=== PATIENT | female | born 1945 | race Caucasian/White ===

== ENCOUNTER → 2017-01-26 16:31 | Outpatient (CLI) | payer MEDICARE, BC, OTHER ==
[2016-01-22 14:38] VITALS: BMI 20.1
[~2017-01-26 16:31] MED LIST: ADVIL200 MG PO; ALLERGY SHOT; ANORO ELLIPTA1 EACH INH; CHANTIX 1 MG TAB1 MG PO; CHOLESTROL MED; GLUCOPHAGE500 MG PO; VYTORIN 10-40 M1 TAB PO
== END | disposition home or self-care (01) ==
LOC: D.MAMMO 15:30
DX: Z12.31 Encounter for screening mammogram for malignant neoplasm of breast (principal)

== ENCOUNTER 2017-02-01 09:45 | Outpatient (CLI) | payer MEDICARE, BC, OTHER ==
[2017-02-01 10:57] VITALS: BP 132/82; Ht 157.5 cm
== END 2017-02-01 10:50 ==
LOC: D.OPS 09:45
DX: M81.0 Age-related osteoporosis without current pathological fracture (principal)

== ENCOUNTER 2017-08-09 10:50 | Outpatient (CLI) | payer MEDICARE, BC, OTHER ==
[2017-08-09 11:15] VITALS: BP 142/77; BMI 18.3
== END 2017-08-09 11:25 | disposition home or self-care (01) ==
LOC: D.OPS 10:50
DX: M81.0 Age-related osteoporosis without current pathological fracture (principal)

== ENCOUNTER 2017-12-14 14:46 | Emergency (ER) | payer MEDICARE, BC, OTHER | END 2017-12-14 18:36 | disposition home or self-care (01) | LOC: D.ER 14:46 | DX: S01.01XA Laceration without foreign body of scalp, initial encounter (principal); W10.9XXA Fall (on) (from) unspecified stairs and steps, initial encounter; Y93.89 Activity, other specified; Y92.019 Unspecified place in single-family (private) house as the place of occurrence of the external cause; M54.6 Pain in thoracic spine; F17.200 Nicotine dependence, unspecified, uncomplicated ==

== ENCOUNTER 2018-04-25 12:29 | Outpatient (CLI) | payer MEDICARE, BC, OTHER ==
[~2018-04-25] VITALS: Ht 157.5 cm; Wt 45.5 kg
[2018-04-25 13:10] VITALS: BP 145/79; Ht 157.5 cm; Wt 45.5 kg
== END 2018-04-25 13:25 | disposition home or self-care (01) ==
LOC: D.OPS 12:29
DX: M81.0 Age-related osteoporosis without current pathological fracture (principal)